=== PATIENT | male | born 1955 | race Caucasian/White ===

== ENCOUNTER → 2020-12-17 | Outpatient (CLI) | payer MEDICARE, OTHER ==
[~2020-12-17] MED LIST: ALLEGRA ALLERG180 MG PO; BRILINTA 90 MG90 MG PO; CRESTOR10 MG PO; DITROPAN 5 MG TA5 MG PO; ECOTRIN81 MG PO; GLUCOPHAGE500 MG PO; SYNTHROID 100100 MCG PO; TRICOR145 MG PO; VISTARIL25 MG PO; VITAMIN D31000 UNI1 PO; ZOFRAN ODT 4 MG4 MG PO
== END ==
LOC: US 09:00
DX: R10.84 Generalized abdominal pain (principal); K76.0 Fatty (change of) liver, not elsewhere classified
CPT/HCPCS: 76705

== ENCOUNTER → 2021-10-21 | Outpatient (CLI) | payer MEDICARE | LOC: US 15:02 | DX: R33.9 Retention of urine, unspecified (principal); N13.30 Unspecified hydronephrosis ==

== ENCOUNTER → 2021-11-15 | Outpatient (CLI) | payer MEDICARE | LOC: HEART 5 12:45 | DX: I25.10 Atherosclerotic heart disease of native coronary artery without angina pectoris (principal); I10 Essential (primary) hypertension; R06.02 Shortness of breath; R00.2 Palpitations; I08.1 Rheumatic disorders of both mitral and tricuspid valves | CPT/HCPCS: 93306 ==

== ENCOUNTER → 2021-11-16 | Outpatient (CLI) | payer MEDICARE | LOC: HEART 5 08:16 | DX: I20.9 Angina pectoris, unspecified (principal) | CPT/HCPCS: 78452; A9502 ==